=== PATIENT | male | born 1985 | race Caucasian/White ===

== ENCOUNTER → 2024-08-23 07:26 | Outpatient (REF) | payer OTHER, SELFPAY | LOC: RAD 07:26 | PROVIDERS: ATTENDING PHYSICIAN Family Medicine | DX: Z00.00 Encounter for general adult medical examination without abnormal findings (principal); Z80.42 Family history of malignant neoplasm of prostate; K59.09 Other constipation; Z13.220 Encounter for screening for lipoid disorders; R19.4 Change in bowel habit | CPT/HCPCS: 76700 ==